=== PATIENT | male | born 1975 | race Caucasian/White ===

== ENCOUNTER 2021-08-29 18:19 | Emergency (ER) | payer OTHER ==
[~2021-08-29 18:19] MED LIST: ADVIL200 M1 PO; DULOXETINE HCL20 MG PO; LYRICA 50MG CAP50 MG PO; OXYCODON-ACETA1 EAC1 PO; PERCOCET 7.5/321 TAB PO; TIZANIDINE HCL2 M1 PO; TIZANIDINE HCL2 MG PO; VENLAFAXINE H37.5 M2 PO
[2021-08-29] MEDS ORDERED: CIPRO500 M1 PO (19:16)
[2021-08-29] MEDS ORDERED: NORCO 5-325 TA1 EACH PO (19:16)
== END 2021-08-29 20:15 | disposition home or self-care (01) ==
LOC: FER 18:19
DX: S60.351A Superficial foreign body of right thumb, initial encounter (principal); I10 Essential (primary) hypertension; F17.210 Nicotine dependence, cigarettes, uncomplicated; Z23 Encounter for immunization; Z88.8 Allergy status to other drugs, medicaments and biological substances; W45.8XXA Other foreign body or object entering through skin, initial encounter; Y93.89 Activity, other specified
CPT/HCPCS: 73130; 90471; 90715; J1170